=== PATIENT | female | born 1995 | race Caucasian/White ===

== ENCOUNTER 2019-08-10 11:18 | Emergency (ER) | payer SELFPAY ==
[~2019-08-10] VITALS: Ht 160 cm; Wt 52.2 kg
[2019-08-10 12:12] VITALS: BP 119/71
[2019-08-10 14:05] VITALS: BP 125/63
== END 2019-08-10 14:05 | disposition home or self-care (01) ==
LOC: EEVIPCON 11:18 → MED 11:18
DX: B34.9 Viral infection, unspecified (principal); Z20.828 Contact with and (suspected) exposure to other viral communicable diseases; R09.81 Nasal congestion; M79.10 Myalgia, unspecified site
CPT/HCPCS: 36415; 71045; 87635; 87804; 99284; Q0092